=== PATIENT | female | born 1940 | race Caucasian/White ===

== ENCOUNTER 2021-02-06 12:59 | Outpatient (CLI) | payer MEDICARE, OTHER, SELFPAY ==
--- NOTE | 2021-02-06 13:09 | MM_ITS ---
WS: [id number] DIAGNOSTIC LEFT DIGITAL MAMMOGRAM WITH CAD HISTORY: HX OF BREAST CA;RT MASTECTOMY COMPARISON: None available. Prior mammograms for 10 to 15 years ago. Technique: CC, MLO and ML views. Breast composition: The breasts are almost entirely fatty. There are a few benign scattered calcific ations within the LEFT breast. No mass or distortion. Very limited evaluation of the pectoralis muscl e due to difficulty positioning the patient. MM/MM diagnostic mammo [id number] IMPRESSION: BI-RADS: 2-Benign FOLLOW UP: 1 Year Follow-up
== END 2021-02-06 13:00 | disposition home or self-care (01) ==
LOC: RADSHAW 13:05
PROVIDERS: PCP Family Medicine; Visit Provider Family Medicine
DX: Z85.3 Personal history of malignant neoplasm of breast (principal); Z90.12 Acquired absence of left breast and nipple
CPT/HCPCS: 77065

== ENCOUNTER 2021-02-20 07:32 | Outpatient (CLI) | payer MEDICARE, OTHER, SELFPAY ==
--- NOTE | 2021-02-20 14:39 | ONC CON_ITS ---
Dr. Mane New Patient Note Patient: Bell Tracy Unit #: [id number]: 1940 Dicatated By: Derian Mane M.D.Date of Visit: Feb 20, 2021 Onc MED New Patient/Consult Referring Physician: Marshall Vega Chief Complaint: Diffuse large B-cell lymphoma. History of Present Illness: This is an 80-year-old woman with recently diagnosed diffuse large B-cell lymphoma. She had recently presented an enlarging left neck mass. She had been aware of it for about 6 weeks. Ultrasound on 01/27/2021 showed a 3.6 x 3.4 x 2.4 cm left clavicular mass with minimal internal blood flow. The appearance was consistent with neoplasm versus siva mass. She underwent core needle biopsy of the mass on 02/02/2021. Pathology showed B cell lymphoma with large cell morphology and high grade features felt to be most consistent with diffuse large B cell lymphoma. There was insufficient biopsy material available for any additional studies. CT of the neck and chest on 02/09/2021 showed a large left supraclavicular mass measuring 4.8 x 2.5 cm. The neck also showed prominent submandibular and level 5 lymph nodes. The chest showed subcarinal lymphadenopathy measuring 2.6 x 2.7 cm and right infrahilar lymphadenopathy versus right lower lobe pulmonary nodule measuring 2.7 x 1.6 cm. A hypoattenuating lesion in the spleen measured 1.7 cm. Retroperitoneal lymphadenopathy was incompletely visualized. She is seen now for further management. She has been feeling good generally. She says she does not feel any differently than normal. Her energy is pretty good, though she does tend to be tired in the afternoon and she gets most of her activities done in the morning. Her ECOG score is 1. Her appetite is good and her weight is stable. She does not have fever or night sweats. She has been having hot flashes for the past 15 to 20 years. She says they just come and go. She has not had sore throat or difficulty swallowing. She does not complain of shortness of breath, cough, or chest pain. She has no GI or complaints other than occasional indigestion. She has some weather related joint pain she has some chronic low back pain. She sees a chiropractor for it as needed. She does not complain of headache or dizziness, and she has no focal neurologic symptoms. Past Medical History: She has hypothyroidism. She has a history of left breast cancer and she has a history of heart block. Past Surgical History: Her surgical/procedural history includes bilateral cataract excisions, delayed left breast reconstruction, placement of permanent pacemaker in 2000, hysterectomy/bilateral salpingectomy-oophorectomy in 1998, cholecystectomy in 1992, and left modified radical mastectomy in 1983. Medications: Aspirin 81 mg (of 81 mg) Tablet, enteric coated Oral daily, Synthroid 112 mcg (of 112 mcg) Tablet Oral daily Allergies: Acetaminophen and Codeine Sulfate. Social History: Ms. Tracy is and she is a retired retail warehouse supervisor. She is a nonsmoker. She does not drink alcohol. Family History: Father at age 78, cause unknown to the patient. Mother at age 89 with pancreatitis. She also had congestive heart failure and rheumatoid arthritis. A brother of heart disease at age 57. A sister in a motor vehicle accident. Review Of Symptoms: Constitutional - She says she does not feel any differently than normal. She has pretty good energy, though she does tend to feel tired in the afternoon and she has most of her activity in the morning. She has good appetite and her weight is stable. She has no fever or night sweats. She has had hot flashes for the past 15 to 20 years, but they just come and go. Her ECOG score score is 0, Eyes - No change in vision, ENMT - No hearing loss. She has tinnitus. No sinus congestion/drainage. No mouth sores. No sore throat or difficulty swallowing, Hematologic/Lymphatic - She says she bruises a little bit, Respiratory - No shortness of breath. No cough. No pleuritic pain or hemoptysis, Cardiovascular - No angina pain. No palpitations, Gastrointestinal - No nausea or vomiting. She has occasional indigestion. No diarrhea or constipation. No blood in the stool or black stools, Genitourinary (F) - No dysuria or hematuria. No urinary frequency. No urgency or incontinence, Musculoskeletal - She has some weather related joint pain, mainly in the knees and elbows. She also has some chronic low backache. She sees a chiropractor for it, Integumentary - No skin rash or other skin changes, Neurologic - No headache or dizziness. No numbness or tingling. No other focal neurologic symptoms, Psychiatric - No anxiety or depression. No insomnia. Vital Signs: Performed on Feb 20, 2021 08:09: 0, 0, 35.12 (HIGH), 1.88 sq.m, 62 in, 98 %, 62 /min, 16 /min, 149/84 mm(hg) (HIGH), 97.6 F (LOW), and 192 lbs (HIGH). Physical Examination: Constitutional - She appears to be in good general health, Eyes - Sclerae nonicteric. Conjunctivae clear, ENMT - No lesions noted in the oral cavity, Neck - No mass or thyromegaly, Hematologic/Lymphatic - There is a firm mass in the left supraclavicular fossa which measures at least 5 cm. I do not feel any other adenopathy in the neck or axillae, Respiratory - Lungs are clear with good air movement bilaterally, Cardiovascular - Heart rhythm is regular. There is no murmur, gallop, or rub noted, Abdomen - Soft and non-tender. Liver and spleen are not enlarged. There is no abdominal mass or ascites noted and there is no inguinal adenopathy, Back/Spine - No spine or CVA tenderness noted, Extremities - No edema. Pedal pulses are palpable bilaterally, Integumentary - No rashes. No suspicious skin lesions noted, Neurologic - No focal neurologic deficits noted. Problem List: 1. B-cell lymphoma with large cell morphology and high-grade features, felt to be most consistent with diffuse large B-cell lymphoma. 2. Hypothyroidism. 3. She has a remote history of left breast cancer with no recurrence following left modified radical mastectomy in 1983. 4. She has a permanent pacemaker in place for complete heart block. Problems Addressed with this Encounter and Plan: Patient with B-cell lymphoma with large cell morphology and high-grade features, felt to be most consistent with diffuse large B-cell lymphoma. The diagnosis was established by core needle biopsy of a left supraclavicular mass. At this point higher grade lymphoma (double hit lymphoma) is not completely excluded, but the biopsy specimen was insufficient for additional analysis. Staging is incomplete. However, by CT scan it appears likely that there is additional involvement in mediastinal lymph nodes and retroperitoneal lymph nodes and also possibly in the spleen. The CT findings and pathology results were reviewed with the patient and her [id number], and we discussed the clinical implications. She has lymphoma which is at least intermediate if not high-grade and while it is potentially treatable, standard therapy would involve either CHOP or dose adjusted EPOCH chemotherapy, either of which would potentially be associated with significant toxicities. The patient is quite adamant from the outset that she is not interested in undergoing chemotherapy, and she also does not want to take any radiation. Given those limitations, we could consider some other options which would have less toxicity but would normally be used as salvage therapies. She may be willing to try something in that category, examples being bendamustine/rituximab or lenalidomide/rituximab combinations. However, she seems more inclined to just continue with symptomatic/supportive care. In that case, I would expect the prognosis to be quite poor, as this does appear to be an aggressive malignancy. In any case, we are first going to schedule a PET/CT for more complete staging and she can decide then if she is willing to attempt any treatment. Signed By: Derian Mane M.D. <<Signature on File>>
== END 2021-02-20 07:33 | disposition home or self-care (01) ==
PROVIDERS: PCP Family Medicine; Visit Provider Internal Medicine Medical Oncology
DX: C83.31 Diffuse large B-cell lymphoma, lymph nodes of head, face, and neck (principal); E03.9 Hypothyroidism, unspecified; Z85.3 Personal history of malignant neoplasm of breast; Z95.0 Presence of cardiac pacemaker; Z79.82 Long term (current) use of aspirin
CPT/HCPCS: 99205

== ENCOUNTER 2021-03-12 13:23 | Outpatient (CLI) | payer MEDICARE, OTHER, SELFPAY ==
--- NOTE | 2021-03-12 19:37 | ONC FU_ITS ---
Dr. Mane Patient Follow-Up Note Patient: Bell Tracy Unit #: [id number]: 1940 Dicatated By: Derian Mane M.D.Date of Visit:Mar 12, 2021 Onc Med Follow-up/Prog Note Chief Complaint: Diffuse large B-cell lymphoma. History of Present Illness: This is an 80-year-old woman with recently diagnosed diffuse large B-cell lymphoma. She had recently presented an enlarging left neck mass. She had been aware of it for about 6 weeks. Ultrasound on 01/27/2021 showed a 3.6 x 3.4 x 2.4 cm left clavicular mass with minimal internal blood flow. The appearance was consistent with neoplasm versus siva mass. She underwent core needle biopsy of the mass on 02/02/2021. Pathology showed B cell lymphoma with large cell morphology and high grade features felt to be most consistent with diffuse large B cell lymphoma. There was insufficient biopsy material available for any additional studies. CT of the neck and chest on 02/09/2021 showed a large left supraclavicular mass measuring 4.8 x 2.5 cm. The neck also showed prominent submandibular and level 5 lymph nodes. The chest showed subcarinal lymphadenopathy measuring 2.6 x 2.7 cm and right infrahilar lymphadenopathy versus right lower lobe pulmonary nodule measuring 2.7 x 1.6 cm. A hypoattenuating lesion in the spleen measured 1.7 cm. Retroperitoneal lymphadenopathy was incompletely visualized. I had seen her initially on 02/20/2021. She had further evaluation with PET/CT on 02/28/2021. It showed extensive FDG positive lymphadenopathy from the level of the head/neck down to the level of the pelvis. The most significant areas of involvement included left supraclavicular mass measuring 4.3 x 2.5 cm with SUV 22.9, a retrocrural node measuring 5.2 x 4.4 cm with SUV 23.3, and a 4.2 x 3.5 cm mesenteric node with SUV 24.0. There was a focal area of involvement in the spleen. The right lower lobe pulmonary nodule described on the chest CT was not visualized on the PET/CT. She is seen today to review the PET/CT results and to discuss further management. She says she is still feeling good. She is aware of the mass on the left side of her neck, but she is otherwise not having significant symptoms. Medications: Aspirin 81 mg (of 81 mg) Tablet, enteric coated Oral daily, Synthroid 112 mcg (of 112 mcg) Tablet Oral daily Allergies: Acetaminophen and Codeine Sulfate. Vital Signs: Performed on Mar 12, 2021 13:59 Height - 62.00 in Weight - 194.2 lbs (HIGH) BSA - 1.89 sq.m BMI - 35.52 (HIGH) Temperature - 98.5 F Pulse - 82 /min Respiration - 18 /min BP - 137/85 mm(hg) O2 Sat - 98 % Pain - 0 Fatigue - 7 Problem List: 1. B-cell lymphoma with large cell morphology and high-grade features, felt to be most consistent with diffuse large B-cell lymphoma. 2. Hypothyroidism. 3. She has a remote history of left breast cancer with no recurrence following left modified radical mastectomy in 1983. 4. She has a permanent pacemaker in place for complete heart block. Problems Addressed with this Encounter and Plan: Patient with B-cell lymphoma with large cell morphology and high-grade features, felt to be most consistent with diffuse large B-cell lymphoma. The diagnosis was established by core needle biopsy of a left supraclavicular mass. Her staging PET/CT showed extensive FDG positive lymphadenopathy from the level of the head/neck down to the level of the pelvis. The most significant areas of involvement included left supraclavicular mass measuring 4.3 x 2.5 cm with SUV 22.9, a retrocrural node measuring 5.2 x 4.4 cm with SUV 23.3, and a 4.2 x 3.5 cm mesenteric node with SUV 24.0. The PET/CT findings and images were reviewed with the patient and her granddaughter. We discussed the clinical implications. She has extensive involvement with a B-cell lymphoma. The PET SUVs and biopsy findings are consistent with intermediate to high-grade disease. The standard treatment would include R-CHOP or dose adjusted R-EPOCH chemotherapy, either of which would be associated with significant toxicity. She had indicated from the outset that she was not wanting to go through chemotherapy treatment. I had also discussed the possibility of attempting a less aggressive treatment regimen which would potentially offer some benefit, though not have curative potential. After considering the matter further, she has decided that she does not want to attempt any treatment for the lymphoma. As such, her further management will be symptomatic/supportive. We discussed the fact that the prognosis with higher grade lymphoma is poor, and that the disease does tend to progress relatively quickly. When she does become symptomatic, she is prepared to transition into hospice care. At that point she also may want to consider having her pacemaker turned off, and I will discuss that with Dr. Alvarado. I will tentatively plan a follow-up visit in 1 month. Signed By: Derian Mane M.D. <<Signature on File>>
== END 2021-03-12 13:24 | disposition home or self-care (01) ==
PROVIDERS: PCP Family Medicine; Visit Provider Internal Medicine Medical Oncology
DX: C83.39 Diffuse large B-cell lymphoma, extranodal and solid organ sites (principal); E03.9 Hypothyroidism, unspecified; Z85.3 Personal history of malignant neoplasm of breast; Z90.12 Acquired absence of left breast and nipple; Z95.0 Presence of cardiac pacemaker; Z79.899 Other long term (current) drug therapy; Z92.21 Personal history of antineoplastic chemotherapy; Z92.3 Personal history of irradiation
CPT/HCPCS: 99215

== ENCOUNTER 2021-04-23 08:04 | Outpatient (CLI) | payer MEDICARE, OTHER, SELFPAY ==
--- NOTE | 2021-04-25 10:35 | ONC FU_ITS ---
Dr. Mane Patient Follow-Up Note Patient: Bell Tracy Unit #: [id number]: 1940 Dicatated By: Derian Mane M.D.Date of Visit:Apr 23, 2021 Onc Med Follow-up/Prog Note Chief Complaint: Diffuse large B-cell lymphoma. History of Present Illness: This is an 80-year-old woman with diffuse large B-cell lymphoma, by clinical evaluation stage III. She had presented an enlarging left neck mass. Ultrasound on 01/27/2021 showed a 3.6 x 3.4 x 2.4 cm left clavicular mass with minimal internal blood flow. The appearance was consistent with neoplasm versus siva mass. She underwent core needle biopsy of the mass on 02/02/2021. Pathology showed B cell lymphoma with large cell morphology and high grade features felt to be most consistent with diffuse large B cell lymphoma. There was insufficient biopsy material available for any additional studies. CT of the neck and chest on 02/09/2021 showed a large left supraclavicular mass measuring 4.8 x 2.5 cm. The neck also showed prominent submandibular and level 5 lymph nodes. The chest showed subcarinal lymphadenopathy measuring 2.6 x 2.7 cm and right infrahilar lymphadenopathy versus right lower lobe pulmonary nodule measuring 2.7 x 1.6 cm. A hypoattenuating lesion in the spleen measured 1.7 cm. Retroperitoneal lymphadenopathy was incompletely visualized. I had seen her initially on 02/20/2021. She had further evaluation with PET/CT on 02/28/2021. It showed extensive FDG positive lymphadenopathy from the level of the head/neck down to the level of the pelvis. The most significant areas of involvement included left supraclavicular mass measuring 4.3 x 2.5 cm with SUV 22.9, a retrocrural node measuring 5.2 x 4.4 cm with SUV 23.3, and a 4.2 x 3.5 cm mesenteric node with SUV 24.0. There was a focal area of involvement in the spleen. The right lower lobe pulmonary nodule described on the chest CT was not visualized on the PET/CT. She was seen for follow-up on 03/12/2021. Given the pathology and the PET/CT findings, she opted to have symptomatic/supportive care only. As she was otherwise not overtly symptomatic, she initially preferred to defer hospice. Her medical history is otherwise significant for remote history of left breast cancer for which she underwent mastectomy in 1983. She has a permanent pacemaker in place for complete heart block. Her only other medical illness has been hypothyroidism. She is a non-smoker. She is seen for a follow-up visit. Since her last visit she has had some decline in her energy/activity tolerance. She is still able to do light work, but she is tired out by noon. ECOG score is 1. Her appetite is still good. She has not had fever. She has been having a lot of hot flashes/sweating, but that has been going on for several years. Her main complaint today is that she has developed pain which starts in the middle of her back and extends around the left side. It tends to bother her most when she is lying in bed at night, and she is having difficulty getting rest. She has not had sore mouth or throat, and she has no difficulty swallowing. She does not complain of cough, and she has not been having shortness of breath or chest pain. She occasionally has nausea. She developed mild constipation taking Tylenol for the pain. She has no complaints. She has no other joint or bone pain. She does not complain of headache or dizziness. She has numbness intermittently in the left middle and ring fingers. She has no other focal neurologic symptoms. Medications: Addaprin 1 Tablet (of 200 mg) Oral at bedtime PRN, Aspirin 81 mg (of 81 mg) Tablet, enteric coated Oral daily, Synthroid 112 mcg (of 112 mcg) Tablet Oral daily Allergies: Acetaminophen and Codeine Sulfate. Vital Signs: Performed on Apr 23, 2021 08:19 Height - 62.00 in Weight - 194.6 lbs (HIGH) BSA - 1.89 sq.m BMI - 35.59 (HIGH) Temperature - 97.6 F (LOW) Pulse - 87 /min Respiration - 16 /min BP - 135/86 mm(hg) O2 Sat - 98 % Pain - 8 Fatigue - 8 Physical Examination: Constitutional - She looks pretty good generally, Eyes - Sclerae nonicteric. Conjunctivae clear, ENMT - No lesions noted in the oral cavity, Hematologic/Lymphatic - The mass in the left supraclavicular fossa is somewhat larger, now with focal areas of nodularity. There is no other adenopathy in the neck or axillae, Respiratory - Lungs sound clear with good air movement bilaterally, Cardiovascular - Heart rhythm is regular. There is no murmur, gallop, or rub noted, Abdomen - Soft. There is very mild tenderness in the left flank area. Liver is not enlarged. Spleen is not palpable. There is no abdominal mass or ascites noted and there is no inguinal adenopathy, Extremities - No edema, Neurologic - No focal neurologic deficits noted. Problem List: 1. B-cell lymphoma with large cell morphology and high-grade features, felt to be most consistent with diffuse large B-cell lymphoma. 2. Hypothyroidism. 3. She has a remote history of left breast cancer with no recurrence following left modified radical mastectomy in 1983. 4. She has a permanent pacemaker in place for complete heart block. Problems Addressed with this Encounter and Plan: Patient with B-cell lymphoma with large cell morphology and high-grade features, felt to be most consistent with diffuse large B-cell lymphoma. The diagnosis was established by core needle biopsy of a left supraclavicular mass. She has at least stage III disease with PET/CT evidence of extensive FDG positive lymphadenopathy from the level of the head/neck down to the level of the pelvis. The most significant areas of involvement included left supraclavicular mass measuring 4.3 x 2.5 cm with SUV 22.9, a retrocrural node measuring 5.2 x 4.4 cm with SUV 23.3, and a 4.2 x 3.5 cm mesenteric node with SUV 24.0. Given the pathology and the PET/CT findings, patient opted to limit her treatment to symptomatic/supportive care measures. As she was not symptomatic other than having the supraclavicular mass, she had initially declined hospice. Since her follow-up visit in February she has had some decline in her activity tolerance. She also now has developed pain in the left mid back radiating around to the left upper quadrant area. I would assume that the pain is most likely associated with the retrocrural or mesenteric lymph node involvement. In any case, it will be managed symptomatically. She is very concerned about the potential side effects associated with opiate pain medication, but at this point she is agreeable to trying a low-dose of immediately release oxycodone, which she will take only as needed. She is also provided instructions for a bowel regimen, as it is likely that she will experience some constipation with it. She is to let us know if this is not effective for her. I will otherwise just plan a follow-up visit in 1 month. In the meantime, she also is scheduled to have follow-up with Dr. Alvarado, and she is going to discuss the issue of shutting off her pacemaker, which will be appropriate as she becomes more symptomatic. Signed By: Derian Mane M.D. <<Signature on File>>
== END 2021-04-23 08:05 | disposition home or self-care (01) ==
PROVIDERS: PCP Family Medicine; Visit Provider Internal Medicine Medical Oncology
DX: C83.38 Diffuse large B-cell lymphoma, lymph nodes of multiple sites (principal); E03.9 Hypothyroidism, unspecified; Z85.3 Personal history of malignant neoplasm of breast; Z95.0 Presence of cardiac pacemaker; M54.89 Other dorsalgia
CPT/HCPCS: 99214

== ENCOUNTER 2021-05-26 11:04 | Outpatient (CLI) | payer MEDICARE, OTHER, SELFPAY ==
--- NOTE | 2021-05-26 19:29 | ONC FU_ITS ---
Dr. Mane Patient Follow-Up Note Patient: Bell Tracy Unit #: [id number]: 1940 Dicatated By: Derian Mane M.D.Date of Visit:May 26, 2021 Onc Med Follow-up/Prog Note Chief Complaint: Diffuse large B-cell lymphoma. History of Present Illness: This is an 80-year-old woman with diffuse large B-cell lymphoma, by clinical evaluation stage III. She had presented an enlarging left neck mass. Ultrasound on 01/27/2021 showed a 3.6 x 3.4 x 2.4 cm left clavicular mass with minimal internal blood flow. The appearance was consistent with neoplasm versus siva mass. She underwent core needle biopsy of the mass on 02/02/2021. Pathology showed B cell lymphoma with large cell morphology and high grade features felt to be most consistent with diffuse large B cell lymphoma. There was insufficient biopsy material available for any additional studies. CT of the neck and chest on 02/09/2021 showed a large left supraclavicular mass measuring 4.8 x 2.5 cm. The neck also showed prominent submandibular and level 5 lymph nodes. The chest showed subcarinal lymphadenopathy measuring 2.6 x 2.7 cm and right infrahilar lymphadenopathy versus right lower lobe pulmonary nodule measuring 2.7 x 1.6 cm. A hypoattenuating lesion in the spleen measured 1.7 cm. Retroperitoneal lymphadenopathy was incompletely visualized. I had seen her initially on 02/20/2021. She had further evaluation with PET/CT on 02/28/2021. It showed extensive FDG positive lymphadenopathy from the level of the head/neck down to the level of the pelvis. The most significant areas of involvement included left supraclavicular mass measuring 4.3 x 2.5 cm with SUV 22.9, a retrocrural node measuring 5.2 x 4.4 cm with SUV 23.3, and a 4.2 x 3.5 cm mesenteric node with SUV 24.0. There was a focal area of involvement in the spleen. The right lower lobe pulmonary nodule described on the chest CT was not visualized on the PET/CT. She was seen for follow-up on 03/12/2021. Given the pathology and the PET/CT findings, she opted to have symptomatic/supportive care only. As she was otherwise not overtly symptomatic, she initially preferred to defer hospice. Her medical history is otherwise significant for remote history of left breast cancer for which she underwent mastectomy in 1983. She has a permanent pacemaker in place for complete heart block. Her only other medical illness has been hypothyroidism. She is a non-smoker. INTERIM HISTORY: At her follow-up visit on 04/23/2021 she was still feeling pretty good generally, though she was showing some decline and she was having more pain in the left upper abdomen extending around to the back. She eventually agreed to try a low-dose of immediate release oxycodone. She is seen again for a follow-up visit. She has been taking the immediate release oxycodone after first trying tramadol, which did not control her pain at all. Thus far she has had only mild side effects with the oxycodone, and it does give her reasonably good pain relief, but at most for about 3 hours. The pain is in her left upper quadrant/left flank area. It radiates around to the back and up to the area between her shoulder blades. She has had a significant decline in her energy and activity tolerance. Her ECOG score is 2. Her appetite is also getting worse. She has not had fever. She has had some episodes of sweating, but not many. She has not had sore mouth or throat. She does not complain of cough. She has not had shortness of breath, but during the past couple of weeks her chest has been feeling heavy. She complains that she is nauseated a lot of the time. She is having some constipation, and she did not tolerate senna very well. Bladder function has been okay. She does not complain of headache. She is sometimes lightheaded. She has no focal neurologic symptoms. Medications: Advil 1 Tablet (of 200 mg) Oral PRN, Aspirin 81 mg (of 81 mg) Tablet, enteric coated Oral daily, oxyCODONE HCl (5 mg) Tablet Oral Take as Directed, Synthroid 112 mcg (of 112 mcg) Tablet Oral daily Allergies: Acetaminophen and Codeine Sulfate. Vital Signs: Performed on May 26, 2021 11:32 Height - 62.00 in Weight - 196.6 lbs (HIGH) BSA - 1.90 sq.m BMI - 35.96 (HIGH) Temperature - 98.5 F Pulse - 97 /min Respiration - 16 /min BP - 130/80 mm(hg) O2 Sat - 95 % (LOW) Pain - 8 Fatigue - 9 Physical Examination: Constitutional - She appears somewhat weak generally, Eyes - Sclerae nonicteric. Conjunctivae clear, ENMT - No lesions noted in the oral cavity, Hematologic/Lymphatic - There has been further increase in the left supraclavicular mass. There is no other adenopathy in the neck or axillae, Respiratory - Lungs sound clear with good air movement bilaterally, Cardiovascular - Heart rhythm is regular. There is no murmur, gallop, or rub noted, Abdomen - Soft. There is now mass palpable in the left flank/left upper quadrant area, and may be extending into the right upper quadrant. There is no obvious ascites noted and there is no inguinal adenopathy, Extremities - Mild lower extremity edema, worse on the right, Neurologic - No focal neurologic deficits noted. Problem List: 1. B-cell lymphoma with large cell morphology and high-grade features, felt to be most consistent with diffuse large B-cell lymphoma. 2. Hypothyroidism. 3. She has a remote history of left breast cancer with no recurrence following left modified radical mastectomy in 1983. 4. She has a permanent pacemaker in place for complete heart block. Problems Addressed with this Encounter and Plan: Patient with B-cell lymphoma with large cell morphology and high-grade features, felt to be most consistent with diffuse large B-cell lymphoma. The diagnosis was established by core needle biopsy of a left supraclavicular mass. She has at least stage III disease with PET/CT evidence of extensive FDG positive lymphadenopathy from the level of the head/neck down to the level of the pelvis. The most significant areas of involvement included left supraclavicular mass measuring 4.3 x 2.5 cm with SUV 22.9, a retrocrural node measuring 5.2 x 4.4 cm with SUV 23.3, and a 4.2 x 3.5 cm mesenteric node with SUV 24.0. Given the pathology and the PET/CT findings, patient opted to limit her treatment to symptomatic/supportive care measures. As she was not symptomatic other than having the supraclavicular mass, she had initially declined hospice. During follow-up there has been gradual worsening of her pain, which is mainly in the left upper quadrant/left flank area. It radiates around to the back and up to the area between her shoulder blades. She is getting pretty good relief with immediate release oxycodone, but at best for about 3 hours. She also has been having nausea and constipation, and she has had a significant decline in performance status. Overall, her symptoms have continued to gradually worsen, as expected. She has agreeable now to hospice referral, which will be requested through the [facility]. She will continue immediate release oxycodone as needed for pain, but she has instructed to take it up to every 2 hours as needed as long she is not having sedation or other side effects. She also will be given a prescription for ondansetron ODT to take as needed for nausea I have recommended that she try MiraLAX for the constipation. I will see her again as needed. In the meantime, she is planning to see Dr. Alvarado to have her pacemaker turned off. Signed By: Derian Mane M.D. <<Signature on File>>
== END 2021-05-26 11:05 | disposition home or self-care (01) ==
LOC: ONCMED 11:10
PROVIDERS: PCP Family Medicine; Visit Provider Internal Medicine Medical Oncology
DX: C83.30 Diffuse large B-cell lymphoma, unspecified site (principal); E03.9 Hypothyroidism, unspecified; Z85.3 Personal history of malignant neoplasm of breast; Z90.12 Acquired absence of left breast and nipple; Z95.0 Presence of cardiac pacemaker; Z79.82 Long term (current) use of aspirin; Z79.891 Long term (current) use of opiate analgesic
CPT/HCPCS: 99214